=== PATIENT | male | born 1965 | race Hispanic/Latino ===

== ENCOUNTER 2017-10-17 16:12 | Emergency (ER) | payer MEDICARE ==
[2017-10-17 18:51] LABS: Basophils % (Auto) 0.6 % (0.0-1.8); Eosinophils % (Auto) 0.3 % (0.0-4.3); Hematocrit 45.1 % (35.5-45.6); Hemoglobin 15.8 gm/dl (11.8-15.2); Lymphocytes # (Auto) 1.6 K/mm3 (1.2-5.4); Lymphocytes % (Auto) 23.5 % (13.4-35.0); Mean Corpuscular HGB Conc 35 % (32-34); Mean Corpuscular Hemoglobin 34 pg (28-32); Mean Corpuscular Volume 98 fl (84-94); Monocytes # (Auto) 0.6 K/mm3 (0.0-0.8); Monocytes % (Auto) 8.8 % (0.0-7.3); Platelet Count 234 K/mm3 (140-440); Red Blood Count 4.63 M/mm3 (3.65-5.03); Red Cell Distribution Width 14.5 % (13.2-15.2)
[2017-10-17 18:55] LABS: BUN/Creatinine Ratio 11; Blood Urea Nitrogen 9 mg/dL (9-20); Calcium 9.4 mg/dL (8.4-10.2); Hemolysis Index 9
[2017-10-17 19:29] LABS: Bilirubin,Urine NEG (Negative); Blood,Urine NEG (Negative); Color,Urine Yellow (Yellow); Mucus,Urine FEW /HPF; Protein,Urine <15 mg/dL mg/dL (Negative)
[2017-10-17 19:30] LABS: Amphetamine Screen,Urine PRESUMPTIVE NEGATIVE; Benzodiazepines Screen,Urine PRESUMPTIVE NEGATIVE; Cannabinoid Screen,Urine PRESUMPTIVE NEGATIVE; Cocaine Screen,Urine PRESUMPTIVE NEGATIVE; Methadone Screen,Urine PRESUMPTIVE NEGATIVE; Opiate Screen,Urine PRESUMPTIVE NEGATIVE
--- NOTE | 2017-10-17 19:30 | Emergency Department Report ---
ED Psych HPI - General Chief Complaint: Psych Stated Complaint: 1013 Time Seen by Provider: 10/17/17 18:18 Source: patient, police Mode of arrival: Ambulatory - History of Present Illness Initial Comments: mr Alvarez is a 52 year-old man with documented history of schizophrenia who presents with altered mental status. Brought in by police after argument with family. patient cannot tell me what happened or why he is here. he goes off on multiple tangents. No SI/HI. Does report hallucinations, but unclear when. Denies currently. Told me margarita aspirin fixes his hallucinations. cannot tell me if they are visual or auditory. reports being well, no chest pain, no fever, no trouble breathing, normal PO, no back pain, normal urine output, normal stools. MD Complaint: altered mental status -: unknown Associated Psychiatric Symptoms: auditory hallucinations, delusions Context: not taking psychiatric - Related Data Home Medications Medication Instructions Recorded Confirmed Last Taken Citalopram [celeXA] 20 mg PO QAM 09/18/15 10/18/17 Unknown Docusate Sodium [Colace] 100 mg PO BID PRN 09/18/15 10/18/17 Unknown LORazepam [Ativan] 0.5 mg PO Q6H PRN 09/18/15 10/18/17 Unknown diphenhydrAMINE [Benadryl CAP] 50 mg PO QHS PRN 09/18/15 10/18/17 Unknown Ambien 10 mg PO HS 11/24/15 10/18/17 Unknown Benztropine 0.5 mg PO BID 11/24/15 10/18/17 Unknown Depakote ER 500 mg PO BID 11/24/15 10/18/17 Unknown RisperDAL 4 mg PO TID 11/24/15 10/18/17 Unknown SEROquel 50 mg PO HS 11/24/15 10/18/17 Unknown ZyPREXA 15 mg PO HS 11/24/15 10/18/17 Unknown Allergies Allergy/AdvReac Type Severity Reaction Status Date / Time No Known Allergies Allergy Verified 10/17/17 17:35 ED Review of Systems ROS: Stated complaint: 1013 Other details as noted in HPI Comment: Unobtainable due to pts medical conditions (psychiatric problem) ED Past Medical Hx - Past Medical History Previous Medical History?: Yes Hx Psychiatric Treatment: Yes (paranoid schizophrenia) - Surgical History Past Surgical History?: No - Social History Smoking Status: Current Every Day Smoker Substance Use Type: Alcohol - Medications Home Medications: Home Medications Medication Instructions Recorded Confirmed Last Taken Type Citalopram [celeXA] 20 mg PO QAM 09/18/15 10/18/17 Unknown History Docusate Sodium [Colace] 100 mg PO BID PRN 09/18/15 10/18/17 Unknown History LORazepam [Ativan] 0.5 mg PO Q6H PRN 09/18/15 10/18/17 Unknown History diphenhydrAMINE [Benadryl CAP] 50 mg PO QHS PRN 09/18/15 10/18/17 Unknown History Ambien 10 mg PO HS 11/24/15 10/18/17 Unknown History Benztropine 0.5 mg PO BID 11/24/15 10/18/17 Unknown History Depakote ER 500 mg PO BID 11/24/15 10/18/17 Unknown History RisperDAL 4 mg PO TID 11/24/15 10/18/17 Unknown History SEROquel 50 mg PO HS 11/24/15 10/18/17 Unknown History ZyPREXA 15 mg PO HS 11/24/15 10/18/17 Unknown History ED Physical Exam - General Limitations: No Limitations, Other General appearance: alert, in no apparent distress - Head Head exam: Present: atraumatic, normocephalic - Eye Eye exam: Present: normal appearance, EOMI, nystagmus - ENT ENT exam: Present: normal exam, mucous membranes moist - Neck Neck exam: Present: normal inspection. Absent: tenderness - Respiratory Respiratory exam: Present: normal lung sounds bilaterally. Absent: respiratory distress - Cardiovascular Cardiovascular Exam: Present: regular rate, normal rhythm - GI/Abdominal GI/Abdominal exam: Present: soft. Absent: distended, tenderness - Extremities Exam Extremities exam: Present: normal inspection. Absent: tenderness - Back Exam Back exam: Present: normal inspection. Absent: tenderness - Neurological Exam Neurological exam: Present: alert. Absent: oriented X3 - Psychiatric Psychiatric exam: Present: agitated. Absent: homicidal ideation, suicidal ideation - Skin Skin exam: Present: warm, dry, intact ED Course Vital Signs 10/17/17 10/18/17 17:00 01:14 Temperature 98.4 F 98.2 F Pulse Rate 73 61 Respiratory 20 18 Rate Blood Pressure 155/90 Blood Pressure 126/75 [Left] O2 Sat by Pulse 96 98 Oximetry ED Medical Decision Making - Lab Data Result diagrams: 10/17/17 18:15 10/17/17 18:15 Lab Results 10/17/17 10/17/17 10/17/17 Range/Units 18:15 18:15 18:15 WBC (4.5-11.0) K/mm3 RBC (3.65-5.03) M/mm3 Hgb (11.8-15.2) gm/dl Hct (35.5-45.6) % MCV (84-94) fl MCH (28-32) pg MCHC (32-34) % RDW (13.2-15.2) % Plt Count (140-440) K/mm3 Lymph % (Auto) (13.4-35.0) % [place] % (Auto) (0.0-7.3) % Eos % (Auto) (0.0-4.3) % Baso % (Auto) (0.0-1.8) % Lymph # (1.2-5.4) K/mm3 [place] # (0.0-0.8) K/mm3 Eos # (0.0-0.4) K/mm3 Baso # (0.0-0.1) K/mm3 Seg Neutrophils % (40.0-70.0) % Seg Neutrophils # (1.8-7.7) K/mm3 Sodium 139 (137-145) mmol/L Potassium 4.0 (3.6-5.0) mmol/L Chloride 98.6 (98-107) mmol/L Carbon Dioxide 25 (22-30) mmol/L Anion Gap 19 mmol/L BUN 9 (9-20) mg/dL Creatinine 0.8 (0.8-1.5) mg/dL Estimated GFR > 60 ml/min BUN/Creatinine Ratio 11 % Glucose 105 H (75-100) mg/dL Calcium 9.4 (8.4-10.2) mg/dL Urine Color (Yellow) Urine Turbidity (Clear) Urine pH (5.0-7.0) Ur Specific [place] (1.003-1.030) Urine Protein (Negative) mg/dL Urine Glucose (UA) (Negative) mg/dL Urine Ketones (Negative) mg/dL Urine Blood (Negative) Urine Nitrite (Negative) Urine Bilirubin (Negative) Urine Urobilinogen (<2.0) mg/dL Ur Leukocyte Esterase (Negative) Urine WBC (Auto) (0.0-6.0) /HPF Urine RBC (Auto) (0.0-6.0) /HPF Urine Mucus /HPF Salicylates < 0.3 L (2.8-20.0) mg/dL Urine Opiates Screen Urine Methadone Screen Acetaminophen < 5.0 L (10.0-30.0) ug/mL Ur Barbiturates Screen Ur Phencyclidine Scrn Ur Amphetamines Screen U Benzodiazepines Scrn Urine Cocaine Screen U Marijuana (THC) Screen Plasma/Serum Alcohol (0-0.07) % 10/17/17 10/17/17 10/17/17 Range/Units 18:15 18:15 18:58 WBC 6.7 (4.5-11.0) K/mm3 RBC 4.63 (3.65-5.03) M/mm3 Hgb 15.8 H (11.8-15.2) gm/dl Hct 45.1 (35.5-45.6) % MCV 98 H (84-94) fl MCH 34 H (28-32) pg MCHC 35 H (32-34) % RDW 14.5 (13.2-15.2) % Plt Count 234 (140-440) K/mm3 Lymph % (Auto) 23.5 (13.4-35.0) % [place] % (Auto) 8.8 H (0.0-7.3) % Eos % (Auto) 0.3 (0.0-4.3) % Baso % (Auto) 0.6 (0.0-1.8) % Lymph # 1.6 (1.2-5.4) K/mm3 [place] # 0.6 (0.0-0.8) K/mm3 Eos # 0.0 (0.0-0.4) K/mm3 Baso # 0.0 (0.0-0.1) K/mm3 Seg Neutrophils % 66.8 (40.0-70.0) % Seg Neutrophils # 4.5 (1.8-7.7) K/mm3 Sodium (137-145) mmol/L Potassium (3.6-5.0) mmol/L Chloride (98-107) mmol/L Carbon Dioxide (22-30) mmol/L Anion Gap mmol/L BUN (9-20) mg/dL Creatinine (0.8-1.5) mg/dL Estimated GFR ml/min BUN/Creatinine Ratio % Glucose (75-100) mg/dL Calcium (8.4-10.2) mg/dL Urine Color Yellow (Yellow) Urine Turbidity Clear (Clear) Urine pH 5.0 (5.0-7.0) Ur Specific [place] 1.017 (1.003-1.030) Urine Protein <15 mg/dl (Negative) mg/dL Urine Glucose (UA) Neg (Negative) mg/dL Urine Ketones Neg (Negative) mg/dL Urine Blood Neg (Negative) Urine Nitrite Neg (Negative) Urine Bilirubin Neg (Negative) Urine Urobilinogen 4.0 (<2.0) mg/dL Ur Leukocyte Esterase Tr (Negative) Urine WBC (Auto) 6.0 (0.0-6.0) /HPF Urine RBC (Auto) 3.0 (0.0-6.0) /HPF Urine Mucus Few /HPF Salicylates (2.8-20.0) mg/dL Urine Opiates Screen Urine Methadone Screen Acetaminophen (10.0-30.0) ug/mL Ur Barbiturates Screen Ur Phencyclidine Scrn Ur Amphetamines Screen U Benzodiazepines Scrn Urine Cocaine Screen U Marijuana (THC) Screen Plasma/Serum Alcohol < 0.01 (0-0.07) % 10/17/17 Range/Units 18:58 WBC (4.5-11.0) K/mm3 RBC (3.65-5.03) M/mm3 Hgb (11.8-15.2) gm/dl Hct (35.5-45.6) % MCV (84-94) fl MCH (28-32) pg MCHC (32-34) % RDW (13.2-15.2) % Plt Count (140-440) K/mm3 Lymph % (Auto) (13.4-35.0) % [place] % (Auto) (0.0-7.3) % Eos % (Auto) (0.0-4.3) % Baso % (Auto) (0.0-1.8) % Lymph # (1.2-5.4) K/mm3 [place] # (0.0-0.8) K/mm3 Eos # (0.0-0.4) K/mm3 Baso # (0.0-0.1) K/mm3 Seg Neutrophils % (40.0-70.0) % Seg Neutrophils # (1.8-7.7) K/mm3 Sodium (137-145) mmol/L Potassium (3.6-5.0) mmol/L Chloride (98-107) mmol/L Carbon Dioxide (22-30) mmol/L Anion Gap mmol/L BUN (9-20) mg/dL Creatinine (0.8-1.5) mg/dL Estimated GFR ml/min BUN/Creatinine Ratio % Glucose (75-100) mg/dL Calcium (8.4-10.2) mg/dL Urine Color (Yellow) Urine Turbidity (Clear) Urine pH (5.0-7.0) Ur Specific [place] (1.003-1.030) Urine Protein (Negative) mg/dL Urine Glucose (UA) (Negative) mg/dL Urine Ketones (Negative) mg/dL Urine Blood (Negative) Urine Nitrite (Negative) Urine Bilirubin (Negative) Urine Urobilinogen (<2.0) mg/dL Ur Leukocyte Esterase (Negative) Urine WBC (Auto) (0.0-6.0) /HPF Urine RBC (Auto) (0.0-6.0) /HPF Urine Mucus /HPF Salicylates (2.8-20.0) mg/dL Urine Opiates Screen Presumptive negative Urine Methadone Screen Presumptive negative Acetaminophen (10.0-30.0) ug/mL Ur Barbiturates Screen Presumptive negative Ur Phencyclidine Scrn Presumptive negative Ur Amphetamines Screen Presumptive negative U Benzodiazepines Scrn Presumptive negative Urine Cocaine Screen Presumptive negative U Marijuana (THC) Screen Presumptive negative Plasma/Serum Alcohol (0-0.07) % - Medical Decision Making Mr Alvarez is a 52 year-old man with hx of schizophrenia, reportedly off his meds by PD, who presents with agitation. Unable to determine what exactly happened to bring him here. No evidence of trauma. Non-linear thinking, disorganized. 1013 placed in order for him to be evaluated by mental health. Unable to care for himself in my medical opinion. Denies SI/HI. Possible hallucination. definite delusions of treating himself with margarita, and some unknown people who help him with it. Well appearing on physical exam. medically clear, not intoxicated. Critical care attestation.: If time is entered above; I have spent that time in minutes in the direct care of this critically ill patient, excluding procedure time. ED Disposition Clinical Impression: Psychosis Qualifiers: Psychosis type: schizophrenia Schizophrenia type: unspecified Qualified Code(s) : F20.9 - Schizophrenia, unspecified Disposition: DC/TX-65 PSY HOSP/PSY UNIT Is pt being admited?: No Condition: Stable Referrals: PRIMARY CARE, [Primary Care Provider] - 3-5 Days
[2017-10-18 12:16] VITALS: BP 110/56
== END 2017-10-18 11:30 ==
LOC: ED 16:12
DX: F20.0 Paranoid schizophrenia (principal); F17.200 Nicotine dependence, unspecified, uncomplicated
CPT/HCPCS: 36415; 80048; 80307; 81001; 85025; 99285; G0480; 80320

== ENCOUNTER 2017-11-12 17:56 | Emergency (ER) | payer MEDICARE ==
[2017-11-12 19:38] LABS: Basophils # (Auto) 0.1 K/mm3 (0.0-0.1); Basophils % (Auto) 1.2 % (0.0-1.8); Eosinophils # (Auto) 0.1 K/mm3 (0.0-0.4); Eosinophils % (Auto) 0.8 % (0.0-4.3); Hematocrit 46.4 % (35.5-45.6); Lymphocytes # (Auto) 2.1 K/mm3 (1.2-5.4); Lymphocytes % (Auto) 29.5 % (13.4-35.0); Mean Corpuscular HGB Conc 34 % (32-34); Mean Corpuscular Hemoglobin 34 pg (28-32); Mean Corpuscular Volume 98 fl (84-94); Monocytes # (Auto) 0.6 K/mm3 (0.0-0.8); Monocytes % (Auto) 8.4 % (0.0-7.3); Platelet Count 297 K/mm3 (140-440); Red Blood Count 4.72 M/mm3 (3.65-5.03); Red Cell Distribution Width 13.7 % (13.2-15.2)
--- NOTE | 2017-11-12 19:51 | Emergency Department Report ---
HPI - General Chief Complaint: Psych Time Seen by Provider: 11/12/17 19:08 - HPI HPI: The patient's 52-year-old male with a history of mental health disease, presents for evaluation of mental health. The patient's family members report that the patient has exhibited aggression, disorganized thoughts, and has been responding to auditory hallucinations. The patient denies fever, headache, unexplained weight loss or weight gain, heat or cold intolerance, skin, hair, or nail changes, neuro deficits, homicidal ideations, or visual hallucinations. ED Past Medical Hx - Past Medical History Previous Medical History?: Yes Hx Psychiatric Treatment: Yes (paranoid schizophrenia) - Social History Smoking Status: Current Every Day Smoker Substance Use Type: None - Medications Home Medications: Home Medications Medication Instructions Recorded Confirmed Last Taken Type Citalopram [celeXA] 20 mg PO QAM 09/18/15 10/18/17 Unknown History Docusate Sodium [Colace] 100 mg PO BID PRN 09/18/15 10/18/17 Unknown History LORazepam [Ativan] 0.5 mg PO Q6H PRN 09/18/15 10/18/17 Unknown History diphenhydrAMINE [Benadryl CAP] 50 mg PO QHS PRN 09/18/15 10/18/17 Unknown History Ambien 10 mg PO HS 11/24/15 10/18/17 Unknown History Benztropine 0.5 mg PO BID 11/24/15 10/18/17 Unknown History Depakote ER 500 mg PO BID 11/24/15 10/18/17 Unknown History RisperDAL 4 mg PO TID 11/24/15 10/18/17 Unknown History SEROquel 50 mg PO HS 11/24/15 10/18/17 Unknown History ZyPREXA 15 mg PO HS 11/24/15 10/18/17 Unknown History ED Review of Systems ROS: Stated complaint: HEARING VOICES Other details as noted in HPI Constitutional: denies: fever ENT: denies: throat or neck pain Respiratory: denies: cough, shortness of breath Cardiovascular: denies: chest pain Endocrine: denies unexplained weight loss or gain Gastrointestinal: denies: abdominal pain, nausea Genitourinary: denies: dysuria Musculoskeletal: denies: leg swelling Skin: denies: rash Neurological: denies: headache Hematological/Lymphatic: denies: easy bleeding or easy bruising Psych: agitation and AH reported (per family members) Physical Exam - Physical Exam Vital Signs: Vital Signs 11/12/17 18:02 Temperature 97.1 F L Pulse Rate 75 Respiratory 18 Rate Blood Pressure 132/79 O2 Sat by Pulse 95 Oximetry Physical Exam: General: well-nourished, well-developed, no acute distress Head: Normocephalic, atraumatic Eyes: normal sclera ENT: Mucous membranes are pink and moist Neck: trachea midline, neck supple, No neck stiffness, no cervical adenopathy Respiratory: Breath sounds equal bilaterally, no wheezing, rales, or rhonchi Cardio: S1 and S2 present, no murmurs, rubs, gallops, capillary refill is brisk Musc: No pitting edema Skin: No rash Neuro: no facial drooping, normal speech Psych: Flat affect, patient paranoid, thoughts are disorganized, poor insight, delusional ED Course Vital Signs 11/12/17 18:02 Temperature 97.1 F L Pulse Rate 75 Respiratory 18 Rate Blood Pressure 132/79 O2 Sat by Pulse 95 Oximetry ED Medical Decision Making - Lab Data Result diagrams: 11/12/17 19:16 11/12/17 19:16 - Medical Decision Making The patient was seen and examined by myself. The patient is placed on a surveillance monitor and continuous pulse ox. On initial evaluation, the patient was found to be in no distress. Labs are obtained. Lab results are grossly unremarkable. The patient is medically clear. Mental health is consulted. Mental health evaluates the patient and agrees that the patient is at risk of harm to self. A 1013 is completed. The patient will be admitted to a psychiatric facility once bed placement is obtained. Critical care attestation.: If time is entered above; I have spent that time in minutes in the direct care of this critically ill patient, excluding procedure time. ED Disposition Clinical Impression: Acute psychosis Disposition: DC/TX-65 PSY HOSP/PSY UNIT Is pt being admited?: No Does the pt Need Aspirin: No Condition: Stable Referrals: PRIMARY CARE, [Primary Care Provider] - 3-5 Days Time of Disposition: 19:51
[2017-11-12 19:53] LABS: BUN/Creatinine Ratio 10; Blood Urea Nitrogen 9 mg/dL (9-20); Calcium 9.2 mg/dL (8.4-10.2); Hemolysis Index 5
[2017-11-13 08:40] LABS: Bilirubin,Urine NEG (Negative); Blood,Urine NEG (Negative); Color,Urine Amber (Yellow); Mucus,Urine 3+ /HPF; Protein,Urine <15 mg/dL mg/dL (Negative)
[2017-11-13 08:43] LABS: Amphetamine Screen,Urine PRESUMPTIVE NEGATIVE; Benzodiazepines Screen,Urine PRESUMPTIVE NEGATIVE; Cannabinoid Screen,Urine PRESUMPTIVE NEGATIVE; Cocaine Screen,Urine PRESUMPTIVE NEGATIVE; Methadone Screen,Urine PRESUMPTIVE NEGATIVE; Opiate Screen,Urine PRESUMPTIVE NEGATIVE
--- NOTE | 2017-11-13 13:54 | Consultation ---
History of Present Illness - Reason for Consult Consult date: 11/13/17 Reason for consult: Mental Health Evaluation Requesting physician: TRAVIS KENNEY - Chief Complaint Chief complaint: "I don't know why I'm here" - History of Present Psychiatric Illness 52 y.o. white male presenting to the ER for acute psychosis. Today the patient is uncooperative and tangent during the assessment. He did state that "people's brains are talking to him." He refused to discuss that statement when asked. This patient was transferred from [facility] to [facility] for inpatient psy services on 10/18/2017. This patient is a poor historian at this time. He denies SI/HI's. Medications and Allergies Allergies Allergy/AdvReac Type Severity Reaction Status Date / Time No Known Allergies Allergy Verified 11/12/17 18:15 Home Medications Medication Instructions Recorded Confirmed Last Taken Type Citalopram [celeXA] 20 mg PO QAM 09/18/15 10/18/17 Unknown History Docusate Sodium [Colace] 100 mg PO BID PRN 09/18/15 10/18/17 Unknown History LORazepam [Ativan] 0.5 mg PO Q6H PRN 09/18/15 10/18/17 Unknown History diphenhydrAMINE [Benadryl CAP] 50 mg PO QHS PRN 09/18/15 10/18/17 Unknown History Ambien 10 mg PO HS 11/24/15 10/18/17 Unknown History Benztropine 0.5 mg PO BID 11/24/15 10/18/17 Unknown History Depakote ER 500 mg PO BID 11/24/15 10/18/17 Unknown History RisperDAL 4 mg PO TID 11/24/15 10/18/17 Unknown History SEROquel 50 mg PO HS 11/24/15 10/18/17 Unknown History ZyPREXA 15 mg PO HS 11/24/15 10/18/17 Unknown History Past psychiatric history - Past Medical History Past Medical History: other (Unable to obtain) Past Surgical History: Other (Unable to obtain) - past Psychiatric treatment and history psychiatric treatment history: Unable to obtain a psy hx and a fam psy hx. - Social History Social history: other (Unable to obtain) Mental Status Exam - Vital signs Last Vital Signs Temp 98.3 F 11/13/17 01:59 Pulse 89 11/13/17 01:59 Resp 18 11/13/17 02:01 BP 98/71 11/13/17 01:59 Pulse Ox 100 11/13/17 02:01 - Exam Narrative exam: MSE: Appearance: uncooperative Behavior: regular eye contact Speech: regular rate and tone Mood: anxious Affect: congruent to mood Thought Process: tangential, disorganized Thought Content: denies SI/HI's and VH's, delusional Motor Activity: sitting up in bed Cognition: A/O x 3 Insight: poor Judgment: poor Results Result Diagrams: 11/12/17 19:16 11/12/17 19:16 Abnormal lab results 11/12/17 11/12/17 11/12/17 Range/Units 19:16 19:16 19:16 Hgb 16.0 H (11.8-15.2) gm/dl Hct 46.4 H (35.5-45.6) % MCV 98 H (84-94) fl MCH 34 H (28-32) pg [place] % (Auto) 8.4 H (0.0-7.3) % Salicylates < 0.3 L (2.8-20.0) mg/dL Acetaminophen < 5.0 L (10.0-30.0) ug/mL Valproic Acid (50-100) ug/mL 11/13/17 Range/Units 07:57 Hgb (11.8-15.2) gm/dl Hct (35.5-45.6) % MCV (84-94) fl MCH (28-32) pg [place] % (Auto) (0.0-7.3) % Salicylates (2.8-20.0) mg/dL Acetaminophen (10.0-30.0) ug/mL Valproic Acid < 2.8 L (50-100) ug/mL All other labs normal. Assessment and Plan Assessment and plan: Impression: Unspecified Psychosis. Today the patient is uncooperative and tangent during the assessment. UDS is negative. DDx: Schizophrenia, R/O Bipolar DO with psychosis Recommendation/Plan: Continue 1013 with placement to inpatient psy services. Start Risperdal 1 mg PO HS for psychosis and Cogentin 0.5 for EPS prevention. Attempted to discuss metabolic side effects of Risperdal with the patient.
[2017-11-13 14:47] VITALS: BP 107/84
[2017-11-13] MEDS ORDERED: COGENTIN PO SCH (22:00)
[2017-11-13] MEDS ORDERED: RisperDAL PO SCH (22:00)
== END 2017-11-13 17:50 ==
LOC: ED 17:56
DX: F23 Brief psychotic disorder (principal); F17.200 Nicotine dependence, unspecified, uncomplicated; F20.0 Paranoid schizophrenia; Z79.899 Other long term (current) drug therapy
CPT/HCPCS: 36415; 80048; 80164; 80307; 81001; 85025; 99285; G0480; 80320